=== PATIENT | female | born 1995 | race American Indian/Alaskan Native ===

== ENCOUNTER 2022-08-06 11:21 | Emergency (ER) | payer OTHER ==
--- NOTE | 2022-08-06 13:12 | Emergency Department Report ---
ED ENT HPI - General Stated complaint: TOOTACHE,HEADACHE,NAUSEA,BACK PAIN Time Seen by Provider: 08/06/22 13:11 Source: patient Mode of arrival: Ambulatory Limitations: No Limitations - History of Present Illness Initial comments: 27 YO COMES TO ER WITH RIGHT LOWER MANDIBULAR PAIN NEW TO AREA DOES NOT HAVE DENTIST ABC INTACT VSS AFEBRILE NO ABSCESS MD complaint: tooth pain -: Gradual, days(s) Severity scale (0 -10): 8 Quality: stabbing Consistency: constant Improves with: none Worsens with: none Associated Symptoms: toothache - Related Data Previous Rx's Medication Instructions Recorded Last Taken Type Amoxicillin [Trimox CAP] 500 mg PO BID #20 capsule 08/06/22 Unknown Rx Allergies Allergy/AdvReac Type Severity Reaction Status Date / Time No Known Allergies Allergy Verified 08/06/22 13:14 ED Dental HPI - General Stated complaint: TOOTACHE,HEADACHE,NAUSEA,BACK PAIN Time Seen by Provider: 08/06/22 13:11 - Related Data Previous Rx's Medication Instructions Recorded Last Taken Type Amoxicillin [Trimox CAP] 500 mg PO BID #20 capsule 08/06/22 Unknown Rx Allergies Allergy/AdvReac Type Severity Reaction Status Date / Time No Known Allergies Allergy Verified 08/06/22 13:14 ED Review of Systems ROS: Stated complaint: TOOTACHE,HEADACHE,NAUSEA,BACK PAIN Other details as noted in HPI Comment: All other systems reviewed and negative ED Past Medical Hx - Past Medical History Previous Medical History?: No - Surgical History Past Surgical History?: No - Family History Family history: no significant - Social History Smoking Status: Never Smoker Substance Use Type: None - Medications Home Medications: Home Medications Medication Instructions Recorded Confirmed Last Taken Type Amoxicillin [Trimox CAP] 500 mg PO BID #20 capsule 08/06/22 Unknown Rx ED Physical Exam - General Limitations: No Limitations General appearance: alert, in no apparent distress - Head Head exam: Present: atraumatic, normocephalic - Eye Eye exam: Present: normal appearance - ENT ENT exam: Present: mucous membranes moist - Expanded ENT Exam Expanded 1 - Other (DENTAL PAIN) - Neck Neck exam: Present: normal inspection - Respiratory Respiratory exam: Present: normal lung sounds bilaterally. Absent: respiratory distress - Cardiovascular Cardiovascular Exam: Present: regular rate, normal rhythm. Absent: systolic mur mur, diastolic murmur, rubs, gallop - GI/Abdominal GI/Abdominal exam: Present: soft, normal bowel sounds - Extremities Exam Extremities exam: Present: normal inspection - Back Exam Back exam: Present: normal inspection - Neurological Exam Neurological exam: Present: alert, oriented X3 - Psychiatric Psychiatric exam: Present: normal affect, normal mood - Skin Skin exam: Present: warm, dry, intact, normal color. Absent: rash ED Medical Decision Making - Medical Decision Making R LOWER MOLAR PAIN NO ABSCESS TAKING PO VS NORMAL ON TRIAGE EDUCATED ON DENTAL CARE DC HOME WITH DC PLAN OF CARE INCLUDING DIET, MEDS, ACTIVITY AND FOLLOW UP SHE VERBALIZES UNDERSTANDING OF PLAN OF CARE - Differential Diagnosis DENTAL PAIN Critical care attestation.: If time is entered above; I have spent that time in minutes in the direct care of this critically ill patient, excluding procedure time. ED Disposition Clinical Impression: Pain, dental Disposition: 01 HOME / SELF CARE / HOMELESS Is pt being admited?: No Does the pt Need Aspirin: No Condition: Stable Instructions: Acute Pain, Adult Additional Instructions: ANTIBIOTIC ORDERED TODAY OVER THE COUNTER MOTRIN OR TYLENOL FOR PAIN SEE DENTIST TOMAS REFERRAL BELOW Referrals: [facility] [Outside] - 3-5 Days [facility] [Outside] - 3-5 Days [facility] [Outside] - 3-5 Days Forms: Work/School Release Form(ED) Time of Disposition: 13:15
[2022-08-06 13:23] VITALS: BP 145/76
== END 2022-08-06 13:50 | disposition home or self-care (01) ==
LOC: ED 11:21
DX: K08.89 Other specified disorders of teeth and supporting structures (principal); R51.9 Headache, unspecified; Z79.899 Other long term (current) drug therapy
CPT/HCPCS: 99282